=== PATIENT | male | born 1955 | race Caucasian/White ===

== ENCOUNTER → 2017-11-02 | Outpatient (CLI) | payer BC | LOC: BMCIMAGING 11:55 | PROVIDERS: ATTEND Emergency Medicine | DX: M25.862 Other specified joint disorders, left knee (principal); Z87.828 Personal history of other (healed) physical injury and trauma ==

== ENCOUNTER → 2018-05-07 | Outpatient (CLI) | payer BC | LOC: BMCIMAGING 11:18 | PROVIDERS: ATTEND Emergency Medicine | DX: M79.89 Other specified soft tissue disorders (principal) ==

== ENCOUNTER → 2018-06-06 | Outpatient (CLI) | payer BC | LOC: BMCIMAGING 15:08 | PROVIDERS: ATTEND Internal Medicine | DX: I82.4Z2 Acute embolism and thrombosis of unspecified deep veins of left distal lower extremity (principal) ==

== ENCOUNTER → 2018-06-08 | Outpatient (CLI) | payer BC | LOC: BMCIMAGING 09:16 | PROVIDERS: ATTEND Internal Medicine | DX: I82.402 Acute embolism and thrombosis of unspecified deep veins of left lower extremity (principal) ==

== ENCOUNTER → 2018-06-13 | Outpatient (CLI) | payer BC | LOC: BMCIMAGING 09:31 | PROVIDERS: ATTEND Internal Medicine | DX: I82.402 Acute embolism and thrombosis of unspecified deep veins of left lower extremity (principal) ==

== ENCOUNTER → 2018-06-18 | Outpatient (CLI) | payer BC | LOC: BMCIMAGING 08:08 | PROVIDERS: ATTEND Internal Medicine | DX: I82.402 Acute embolism and thrombosis of unspecified deep veins of left lower extremity (principal) ==

== ENCOUNTER → 2018-10-17 | Outpatient (CLI) | payer BC | LOC: BMCIMAGING 12:52 | PROVIDERS: ATTEND Internal Medicine | DX: I82.542 Chronic embolism and thrombosis of left tibial vein (principal) ==